=== PATIENT | female | born 1975 | race Caucasian/White ===

== ENCOUNTER 2019-01-22 13:31 | Emergency (ER) | payer OTHER ==
[~2019-01-22] VITALS: Ht 160 cm; Wt 84.9 kg
--- OUTSIDE RECORDS SUMMARY | 2019-01-22 13:34 | XMS REPORT ---
Author Author [facility] Address Unknown Phone Unavailable Care Team Providers [employer] Lieutenant Name Role Phone Unavailable Unavailable Payers Payer Name Policy Type Policy Number Effective Date Expiration Date Problems This patient has no known problems. Allergies, Adverse Reactions, Alerts Allergy Name Allergy Type Status Severity Reaction(s) Onset Date Inactive Date Treating Clinician Comments hydrocodone DA Active [place] 2018-10-16 00:00:00 hydrocodone DA Active [place] 2018-10-03 00:00:00 acetaminophen DA Active [place] 2018-10-03 00:00:00 hydrocodone DA Active 2017-12-12 00:00:00 hydrocodone DA Active 2009-06-14 00:00:00 Medications This patient has no known medications. Results Test Description Test Time Test Comments Text Results Atomic Results Result Comments GLUBED 2018-10-19 09:46:00 GLUBED (test code=GLUBED) 85 mg/dL 60-125 [id number] 05:42:00* Test Item Value Reference Range Comments GLUBED (test code=GLUBED) 91 mg/dL 60-125 [id number] 20:21:00* Test Item Value Reference Range Comments GLUBED (test code=GLUBED) 161 mg/dL 60-125 [id number] 17:27:00* Test Item Value Reference Range Comments GLUBED (test code=GLUBED) 85 mg/dL 60-125 [id number] 14:34:00* Test Item Value Reference Range Comments GLUBED (test code=GLUBED) 111 mg/dL 60-125 [id number] 11:21:00* Test Item Value Reference Range Comments GLUBED (test code=GLUBED) 95 mg/dL 60-125 BASIC METABOLIC [id number] 14:27:00* Test Item Value Reference Range Comments SODIUM (test code=NA) 142 mmol/L 136-145 POTASSIUM (test code=K) 4.7 mmol/L 3.5-5.1 CHLORIDE (test code=CL) 105.0 mmol/L 98-107 CARBON DIOXIDE (test code=CO2) 28.3 mmol/L 21-32 GLUCOSE (test code=GLU) 105 mg/dL 70-110 BLOOD UREA NITROGEN (test code=BUN) 16 mg/dL 7-18 GLOMERULAR FILTRATION RATE (test code=GFR) 105.1 >60 Unit of measure: mL/min/1.73 [id number] Range:Healthy Adults >90 mL/min/1.73 m2 For Chronic Kidney Disease: Stage II Mild Decrease in GFR 60-90 Stage III Moderate Decrease in GFR 30-59 Stage IV Severe Decrease in GFR 15-29 Stage V Kidney Failure <15 CREATININE (test code=CREAT) 0.62 mg/dL 0.55-1.30 CALCIUM (test code=CA) 8.5 mg/dL 8.2-10.1
--- OUTSIDE RECORDS SUMMARY | 2019-01-22 13:34 | XMS REPORT | Summary of Care ---
Author Author GONZALO ANDRADE M.D. Organization Unknown Address Unknown Phone Unavailable Care Team Providers Care Supervisor Publications Production Name Role Phone GONZALO ANDRADE M.D. Unavailable Unavailable Unavailable Unavailable Functional Status Name Dates Details Functional status health issues are not documented Status: Name Dates Details Cognitive status health issues are not documented Status: Problems Name Dates Details Fibromyalgia (729.1, M79.7) Status: Active Need for influenza vaccination (V04.81, Z23) Status: Active Need for vaccination for pneumococcus (V03.82, Z23) Status: Active Type 2 diabetes mellitus (250.00, E11.9) Status: Active Other hyperlipidemia (272.4, E78.4) Status: Active Medications Name Dates Details MetFORMIN HCl ER 500 MG Oral Tablet Extended Release 24 Hour TAKE 4 TABLETS EVERY MORNING Quantity: 360 GONZALO ANDRADE M.D. * Start : 11-Dec-2012 Active Simvastatin 40 MG Oral Tablet TAKE 1/2 TABLET BY MOUTH DAILY. * Quantity: 30 Refills: 2 GONZALO ANDRADE M.D. * Start : 01-Mar-2017 Active Citalopram Hydrobromide 40 MG Oral Tablet Per Dr charles * Refills: 0 GONZALO ANDRADE M.D. * Start : 11-Dec-2012 Active OneTouch Deljovon Lancets Fine Check BG 2x a day * Quantity: 200 Refills: 4 GONZALO ANDRADE M.D. * Start : 09-Mar-2013 Active Vitamin B-12 1000 MCG Oral Tablet TAKE 1 TABLET DAILY DIRECTED. * Quantity: 100 Refills: 4 GONZALO ANDRADE M.D. * Start : 09-Mar-2013 Active BD Pen Needle Mini U/F 31G X 5 MM 2 a day * Quantity: 200 Refills: 6 GONZALO ANDRADE M.D. * Start : 09-Mar-2013 Active Xanax 0.25 MG Oral Tablet * Refills: 0 GONZALO ANDRADE M.D. * Start : 26-Nov-2014 Active Vitamin D3 2000 UNIT Oral Capsule 1 a day * Quantity: 100 Refills: 4 LUPE Marie.Mignon, GONZALO * Start : 08-Jan-2016 Active OneTouch Verio In Vitro Strip CHECK 2 TIMES DAILY * Quantity: 2 Refills: 4 LUPE M.D., GONZALO * Start : 08-Jan-2016 Active 100 Strip Box Trulicity 1.5 MG/0.5ML Subcutaneous Solution Pen-injector INJECT CONTENTS OF ONE PEN WEEKLY * Quantity: 1 Refills: 3 LUPE M.Vlad., GONZALO * Start : 21-Mar-2017 Active 4 x 0.5 ML Pen Lyrica 50 MG Oral Capsule per Dr Hurd * Refills: 0 LUPE M.Vlad., GONZALO * Start : 29-Jul-2016 Active Tresiba FlexTouch 100 UNIT/ML Subcutaneous Solution Pen-injector 10-20 units nightly; may self titrate up to 30 units a day Replacing Lantus 20 18 * Quantity: 1 Refills: 2 LUPE M.Vlad., GONZALO * Start : 21-Feb-2017 Active 5 x 3 ML Pen Allergies and Adverse Reactions Name Dates Details Vicodin TABS (Allergy) Status: Active Past Medical History Name Dates Details History of Endometriosis (617.9, N80.9) Status: Resolved History of Gestational Diabetes Mellitus (V12.21) Status: Resolved Procedures Procedure Dates Details History of Tubal Ligation Completed History of Section Completed History of Wrist Surgery Completed Immunization Name Dates Details Fluzone Quadrivalent 0.5 ML Intramuscular Suspension Lot #: [id number] on: 20-Feb-2015 Pneumococcal polysaccharide vaccine, 23 valent Lot #: [id number] on: 20-Feb-2015 Influenza Comments: Approx [id number] Family History Name Dates Details Family history of Reported Prior Thyroid Disease Comments: Family History Status: Active Family history of Diabetes Mellitus (V18.0) Comments: Family History Status: Active Name Dates Details Family history of Diabetes Mellitus (V18.0) Status: Active Name Dates Details Family history of Diabetes Mellitus (V18.0) Status: Active Family history of Jose thyroiditis (V18.19, Z83.49) Status: Active Family history of Sjogren's disease (V17.89, Z82.69) Status: Active Social History Name Dates Details Unknown if ever smoked Vital Signs Date Test Result Details [id number] BP Systolic 104 mm[Hg] Status: BP Diastolic 70 mm[Hg] Status: :30 BP Systolic 104 mm[Hg] Status: Comments: Location: LUE; Position: Sitting BP Diastolic 71 mm[Hg] Status: Comments: Location: LUE; Position: Sitting Height 64 in Status: Weight 189 lb Status: Body Mass Index Calculated 32.44 kg/m2 Status: Body Surface Area Calculated 1.91 m2 Status: Heart Rate 65 /min Status: Comments: Location: L Radial; Quality: Normal Results Date Description Value Details : [O] Lipid Panel (In Office) CHOLESTEROL, TOTAL 114 HDL CHOLESTEROL 42 TRIGLYCERIDES 63 LDL-CHOLESTEROL 59 NON HDL CHOLESTEROL 72 T. Chol/HDL Ratio 2.7 GLUCOSE 93 :29 [O] Hemoglobin A1c (in office) HEMOGLOBIN A1c 5.5 Plan of Care Name Dates Details Planned Observations Planned Goals not documented Interventions Provided Labs/Procedures/Imaging* [O] Hemoglobin A1c (in office); Done: 09 Jun 2017 * [O] Lipid Panel (In Office); Done: 09 Jun 2017 Instructions Name Dates Details Instructions not documented Encounters Appointment; GONZALO ANDRADE M.D. Encounter Diagnosis: Problem not documented On: 06-Oct-2015 8:30 Appointment; GONZALO ANDRADE M.D. Encounter Diagnosis: Problem not documented On: 08-Jan-2016 14:15 Appointment; GONZALO ANDRADE M.D. Encounter Diagnosis: Problem not documented On: 20-Apr-2016 9:30 Appointment; GONZALO ANDRADE M.D. Encounter Diagnosis: Problem not documented On: 29-Jul-2016 9:30 Appointment; GONZALO ANDRADE M.D. Encounter Diagnosis: Problem not documented On: 03-Nov-2016 8:30 Appointment; GONZALO ANDRADE M.D. Encounter Diagnosis: Problem not documented On: 21-Feb-2017 10:00
[2019-01-22] MEDS ORDERED: SODIUM CHLORIDE 0.9% 1000ML 1,000 ML IV STA (13:48)
[2019-01-22] MEDS ORDERED: PROMETHAZINE 25MG/ NS 50ML (IV) IV ONE (14:00)
[2019-01-22] MEDS ORDERED: DIPHENHYDRAMINE HCL INJ 50 MG/ML VIAL IV ONE (14:00)
[2019-01-22] MEDS ORDERED: TETRACAINE HCL 0.5% OPTH SOLN 4 ML BTL OP ONE (14:00)
[2019-01-22] MEDS ORDERED: DEXAMETHASONE SOD PHOS 10 MG/1 ML VIAL IV ONE (14:00)
[2019-01-22] MEDS ORDERED: KETOROLAC TROMETHAMINE 30 MG/ML VIAL IV ONE (14:00)
[2019-01-22] MEDS ORDERED: DIPHENHYDRAMINE HCL INJ 50 MG/ML VIAL ONE (14:10)
[2019-01-22] MEDS ORDERED: DEXAMETHASONE SOD PHOS 10 MG/1 ML VIAL ONE (14:10)
[2019-01-22] MEDS ORDERED: SODIUM CHLORIDE 0.9% 50ML 50 ML ONE (14:11)
[2019-01-22] MEDS ORDERED: KETOROLAC TROMETHAMINE 30 MG/ML VIAL ONE (14:11)
[2019-01-22] MEDS ORDERED: PROMETHAZINE HCL (IM) 25 MG/ML VIAL ONE (14:11)
[2019-01-22] MEDS ORDERED: SODIUM CHLORIDE 0.9% 1000ML 1,000 ML ONE (14:11)
[2019-01-22 14:54] VITALS: BP 128/80
--- NOTE | 2019-01-22 14:58 | Diagnostic Imaging Report ---
History: Headache for one hour Comparison studies: None Technique: Axial images were obtained from the skull base to the vertex. Coronal and sagittal reconstructions obtained from the axial data. Dose modulation, iterative reconstruction, and/or weight based adjustment of the mA/kV was utilized to reduce the radiation dose to as low as reasonably achievable. Findings: Scalp/skull: No abnormalities. No fractures, blastic or lytic lesions. Extra-axial spaces: No masses. No fluid collections. Brain sulci: Appropriate for age. Ventricles: Normal in size and configuration. No hydrocephalus. Parenchyma: No abnormal densities. No masses, hemorrhage, acute or chronic cortical vascular insults. Sellar/suprasellar region: No abnormalities Craniocervical junction: Patent foramen magnum. No Chiari one malformation. IMPRESSION: No abnormalities . Signed by: DR Elroy Olivo M.D. on 01/22/2019 2:55 PM
== END 2019-01-22 14:54 | disposition home or self-care (01) ==
LOC: FSED 13:31
DX: G43.009 Migraine without aura, not intractable, without status migrainosus (principal); E11.9 Type 2 diabetes mellitus without complications; M79.7 Fibromyalgia
CPT/HCPCS: 36415; 70450; 80048; 81003; 85025; 85651; 96374; 96375; 99284; J1100; J1200; J1885; J2550; J7030

== ENCOUNTER 2020-02-17 16:29 | Emergency (ER) | payer OTHER ==
[~2020-02-17] VITALS: Ht 160 cm; Wt 84.8 kg
[2020-02-17] MEDS ORDERED: LYRICA100 MG PO (18:08)
[2020-02-17] MEDS ORDERED: TYLENOL # 31 EA PO (18:10)
== END 2020-02-17 18:31 | disposition home or self-care (01) ==
LOC: FSED 16:50
DX: E11.65 Type 2 diabetes mellitus with hyperglycemia (principal); M79.662 Pain in left lower leg; M79.661 Pain in right lower leg; M60.9 Myositis, unspecified; M79.7 Fibromyalgia; Z20.828 Contact with and (suspected) exposure to other viral communicable diseases; F32.9 Major depressive disorder, single episode, unspecified; F17.210 Nicotine dependence, cigarettes, uncomplicated
CPT/HCPCS: 80053; 81003; 82553; 84484; 99284